=== PATIENT | male | born 1990 | race Two or more races ===

== ENCOUNTER 2022-11-30 14:48 | Emergency (ER) | payer MEDICAID, OTHER ==
[~2022-11-30] VITALS: Ht 162.6 cm; Wt 56.8 kg
[2022-11-30 14:48] VITALS: BP 158/98
== END 2022-11-30 20:18 | disposition home or self-care (01) ==
LOC: ER 14:48
DX: S49.92XA Unspecified injury of left shoulder and upper arm, initial encounter (principal); W18.39XA Other fall on same level, initial encounter; Y93.89 Activity, other specified; Y92.89 Other specified places as the place of occurrence of the external cause; Y99.8 Other external cause status
CPT/HCPCS: 73030

== ENCOUNTER 2023-10-01 12:24 | Emergency (ER) | payer MEDICAID, OTHER ==
[~2023-10-01] VITALS: Ht 160 cm; Wt 55.1 kg
[2023-10-01] MEDS ORDERED: NAPR-1334 PO (12:46)
[2023-10-01 13:23] VITALS: BP 129/97; PULSE 96; RESP 18; O2SAT 99
== END 2023-10-01 13:54 | disposition home or self-care (01) ==
LOC: ER 12:24
DX: S20.219A Contusion of unspecified front wall of thorax, initial encounter (principal); Z79.899 Other long term (current) drug therapy; V89.2XXA Person injured in unspecified motor-vehicle accident, traffic, initial encounter; Y93.89 Activity, other specified; Y92.89 Other specified places as the place of occurrence of the external cause; Y99.8 Other external cause status
CPT/HCPCS: 71046